=== PATIENT | male | born 1985 | race Caucasian/White ===

== ENCOUNTER 2017-12-30 15:50 | Observation (INO) | payer MEDICAID ==
[~2017-12-30] VITALS: Ht 182.9 cm; Wt 75.0 kg
[2017-12-30] MEDS ORDERED: RISP0.2518 PO (16:05)
[2017-12-30 16:25] LABS: BASOPHILS # (AUTO) 0.05 x10^3/uL (0-0.1); BASOPHILS % (AUTO) 1 % (0-1); EOSINOPHILS # (AUTO) 0.11 x10^3/uL (0-0.4); EOSINOPHILS % (AUTO) 1 % (1-7); LYMPHOCYTES # (AUTO) 1.27 x10^3/uL (1-3.4); LYMPHOCYTES % (AUTO) 13 % (22-44); MD NO; MEAN CORPUSCULAR HGB CONC 34.3 g/dL (33.2-36.2); MEAN CORPUSCULAR VOLUME 93.2 fL (81-97); MEAN PLATELET VOLUME 9.3 fL (7.4-10.4); MONOCYTES # (AUTO) 0.48 x10^3/uL (0.2-0.8); MONOCYTES % (AUTO) 5 % (2-9); NEUTROPHILS # (AUTO) 7.78 x10^3/uL (1.8-6.8); NEUTROPHILS % (AUTO) 80 % (42-75); PLATELET COUNT 229 x10^3/uL (130-400); RED BLOOD COUNT 4.81 x10^6/uL (4.38-5.82); RED CELL DISTRIBUTION WIDTH 12.7 % (9.4-14.8)
[2017-12-30 16:38] LABS: ALBUMIN 4.2 g/dL (3.4-5.0); ANION GAP 12 mmol/L (5-15); CALCIUM 9.1 mg/dL (8.5-10.1); CHLORIDE 98 mmol/L (98-107); SALICYLATE LEVEL 4.4 mg/dL (2.8-20.0)
[2017-12-30 16:41] LABS: ALANINE AMINOTRANSFERASE 36 U/L (12-78); ALKALINE PHOSPHATASE 79 U/L (45-117); BILIRUBIN,TOTAL 1.4 mg/dL (0.2-1.0); CREATININE 1.46 mg/dL (0.7-1.3); TOTAL PROTEIN 7.7 g/dL (6.4-8.2)
[2017-12-30 16:42] LABS: ACETAMINOPHEN < 2 mcg/mL (10-30)
[2017-12-30 16:45] LABS: AMPHETAMINE SCREEN, URINE Positive (Negative); BARBITURATE SCREEN, URINE Negative (Negative); BENZODIAZEPINE SCREEN, URINE Positive (Negative); CANNABINOID SCREEN, URINE Positive (Negative); COCAINE SCREEN, URINE Negative (Negative); METHADONE SCREEN, URINE Negative (Negative); OPIATE SCREEN, URINE Negative (Negative)
[2017-12-30] MEDS ORDERED: ACETAMINOPHEN 325 MG TABLET PO PRN (19:00)
[2017-12-30] MEDS ORDERED: SODIUM CHLORIDE 0.9% 1,000ML IVBOLUS ONE (19:00)
[2017-12-30] MEDS: BENZONATATE 100 MG CAPSULE PO SCH (21:00)
[2017-12-30] MEDS ORDERED: LORazepam 1MG TABLET PO ONE (21:00)
[2017-12-30] MEDS ORDERED: RISPERIDONE 2 MG TABLET ONE (21:07)
[2017-12-30] MEDS ORDERED: LORazepam 1MG TABLET ONE (21:07)
[2017-12-30] MEDS: RISPERIDONE 1 MG TABLET PO SCH (21:11)
[2017-12-30 22:17] VITALS: BP 110/60
[2017-12-31 07:35] VITALS: BP 117/60
[2017-12-31] MEDS ORDERED: SODIUM CHLORIDE 0.9% 1,000 ML IV ONE (11:30)
[2017-12-31 12:21] LABS: CALCIUM 8.5 mg/dL (8.5-10.1); CHLORIDE 103 mmol/L (98-107)
[2017-12-31 12:29] LABS: ALBUMIN 3.6 g/dL (3.4-5.0); ANION GAP 8 mmol/L (5-15); CREATINE KINASE, TOTAL 773 U/L (39-308); CREATININE 0.89 mg/dL (0.7-1.3)
[2017-12-31 19:40] VITALS: BP 98/62
[2017-12-31] MEDS ORDERED: ALBUTEROL/IPRATROPIUM 2.5MG/0.5MG, 3 ML NPPB PRN (20:30)
[2017-12-31] MEDS ORDERED: GUAIFENESIN 100 MG/5 ML, 10ML UDC PO PRN (20:30)
[2017-12-31] MEDS ORDERED: GUAIFENESIN 100 MG/5 ML, 5ML UDC ONE ×2 (20:57→20:58)
[2017-12-31] MEDS: RISPERIDONE 1 MG TABLET PO SCH (20:59)
[2018-01-01 07:39] VITALS: BP 98/64
[2018-01-01] MEDS: BENZONATATE 100 MG CAPSULE PO SCH ×3 (09:03→20:51)
[2018-01-01 19:37] VITALS: BP 102/57
[2018-01-01] MEDS: RISPERIDONE 1 MG TABLET PO SCH (20:46)
[2018-01-02] MEDS: BENZONATATE 100 MG CAPSULE PO SCH ×3 (07:58→21:24)
[2018-01-02 08:09] VITALS: BP 95/61
[2018-01-02 19:22] VITALS: BP 108/65
[2018-01-02] MEDS: RISPERIDONE 1 MG TABLET PO SCH (21:23)
[2018-01-03 08:00] VITALS: BP 104/69
[2018-01-03] MEDS: BENZONATATE 100 MG CAPSULE PO SCH ×3 (09:29→21:44)
[2018-01-03 19:33] VITALS: BP 108/64
[2018-01-03] MEDS: RISPERIDONE 1 MG TABLET PO SCH (21:44)
[2018-01-04] MEDS: BENZONATATE 100 MG CAPSULE PO SCH (08:14)
[2018-01-04 08:21] VITALS: BP 102/64
== END 2018-01-04 10:52 ==
LOC: ED 16:35 → EDIP 18:32 → 2N 22:14
PROVIDERS: ADMIT Hospitalist; ATTEND Hospitalist
DX: R45.851 Suicidal ideations (principal); R45.850 Homicidal ideations; F20.9 Schizophrenia, unspecified; F32.9 Major depressive disorder, single episode, unspecified; F41.9 Anxiety disorder, unspecified; E87.1 Hypo-osmolality and hyponatremia; E86.9 Volume depletion, unspecified; N28.9 Disorder of kidney and ureter, unspecified; J45.909 Unspecified asthma, uncomplicated; N17.0 Acute kidney failure with tubular necrosis; F17.210 Nicotine dependence, cigarettes, uncomplicated; Z59.0 Homelessness
CPT/HCPCS: 36415; 80053; 80069; 80307; 80329; 82550; 84443; 85025; 94640; 96360; 96361; 99285; G0378; J7030; G0480

== ENCOUNTER 2018-02-11 08:33 | Emergency (ER) | payer MEDICAID ==
[~2018-02-11] VITALS: Ht 175.3 cm; Wt 73.9 kg
[~2018-02-11 08:33] MED LIST: RISP0.2518 PO
[2018-02-11 08:35] VITALS: BP 138/78
== END 2018-02-11 09:46 | disposition home or self-care (01) ==
LOC: ED 09:40
DX: T14.8XXA Other injury of unspecified body region, initial encounter (principal); W57.XXXA Bitten or stung by nonvenomous insect and other nonvenomous arthropods, initial encounter; Y93.89 Activity, other specified; Y92.89 Other specified places as the place of occurrence of the external cause; Y99.8 Other external cause status
CPT/HCPCS: 99283

== ENCOUNTER 2018-03-04 14:37 | Emergency (ER) | payer MEDICAID ==
[~2018-03-04] VITALS: Ht 175.3 cm; Wt 70.7 kg
[2018-03-04 15:00] VITALS: BP 114/76
[2018-03-04] MEDS ORDERED: BACITRACIN ZINC OINT 500U/GM, 0.9 GM ONE (15:56)
== END 2018-03-04 16:01 | disposition home or self-care (01) ==
LOC: ED 16:00
DX: S93.492A Sprain of other ligament of left ankle, initial encounter (principal); L24.9 Irritant contact dermatitis, unspecified cause; J45.909 Unspecified asthma, uncomplicated; X58.XXXA Exposure to other specified factors, initial encounter; Y93.89 Activity, other specified; Y92.89 Other specified places as the place of occurrence of the external cause; Y99.8 Other external cause status
CPT/HCPCS: 99284

== ENCOUNTER 2018-03-09 12:21 | Emergency (ER) | payer MEDICAID ==
[~2018-03-09] VITALS: Ht 175.3 cm; Wt 72.0 kg
[2018-03-09] MEDS ORDERED: CEFTRIAXONE 250 MG IM ONE (13:30)
[2018-03-09] MEDS ORDERED: AZITHROMYCIN 500 MG TABLET PO ONE (13:30)
[2018-03-09] MEDS ORDERED: FLUCONAZOLE 100 MG TABLET PO ONE (13:30)
[2018-03-09] MEDS ORDERED: AZITHROMYCIN 250 MG TABLET ONE (14:03)
[2018-03-09] MEDS ORDERED: CEFTRIAXONE 250 MG ONE (14:03)
[2018-03-09] MEDS ORDERED: FLUCONAZOLE 100 MG TABLET ONE (14:03)
[2018-03-09 14:13] VITALS: BP 114/67
== END 2018-03-09 14:29 | disposition home or self-care (01) ==
LOC: ED 13:52
DX: B37.42 Candidal balanitis (principal); J45.909 Unspecified asthma, uncomplicated
CPT/HCPCS: 96372; 99283; J0696